=== PATIENT | male | born 1965 | race Caucasian/White ===

== ENCOUNTER 2019-02-11 20:52 | Emergency (ER) | payer OTHER ==
[~2019-02-11] VITALS: Ht 175.3 cm; Wt 83.9 kg
[2019-02-11] MEDS ORDERED: ALLOPURINOL 10100 M1 PO (21:01)
[2019-02-11] MEDS ORDERED: NAPROSYN500 MG PO (23:13)
[2019-02-11 23:19] VITALS: BP 128/79
== END 2019-02-11 23:40 | disposition home or self-care (01) ==
LOC: ER 20:52
DX: M25.561 Pain in right knee (principal); F10.10 Alcohol abuse, uncomplicated; I10 Essential (primary) hypertension; G89.29 Other chronic pain; M54.9 Dorsalgia, unspecified; F17.210 Nicotine dependence, cigarettes, uncomplicated